=== PATIENT | female | born 1935 | race Caucasian/White ===

== ENCOUNTER → 2018-09-19 07:52 | Day surgery (SDC) | payer MEDICARE ==
[~2018-09-19 07:52] MED LIST: Heparin 2 UNITS/ML IVPREMIX* 3,000 UNIT/1,500 ML BAG IV ONE; Heparin(*) 1000 UNIT/ML 10 ML VIAL CATH LAB IV ONE; Iohexol 350 (CONTRAST) 200 ML MDV IV ONE; Lidocaine 1% INJ* 10 MG/ML 30 ML SDV ONE; Midazolam* 1 MG/ML 5 ML VIAL (5 MG) ONE; VERAPAMIL 2.5 MG/ML 2 ML VIAL ** 5 mg/2 ml ONE; fentaNYL* 50 MCG/ML 2 ML VIAL (100 MCG VIAL) ONE; nitroGLYCERIN DRIP* 25,000 MCG/250 ML BTL ONE
[2018-09-19 13:00] VITALS: BP 132/70
--- NOTE | 2018-09-20 15:00 | CATH ---
CC: Dr. Kane Roach; Dr. Dunbar at [facility]; Dr. Pozo * CATH REPORT: DATE OF PROCEDURE: 09/19/18 - [facility] CATH CUSTOMER EXPERIENCE ANALYST: Dr. Kane Roach and Dr. Dunbar at [facility]. PROCEDURES: 1. Right radial artery access. 2. Bilateral selective coronary cineangiography. HISTORY: An 83-year-old woman with symptomatic aortic valve stenosis with aortic valve area of 0.8, referred for cardiac cath pre TAVR. PROCEDURE ACCESS: Right radial artery sheath 6F slender. MEDICATIONS: 1. Subcu lidocaine. 2. IV Versed. 3. IV fentanyl. 4. Heparin 3000 units. 5. Verapamil 3 mg. 6. Nitroglycerin 300 mcg IA. DIAGNOSTIC CATHETER: 5F TIG4. HEMODYNAMICS: Initial AO: 82/51. Final AO: 99/55. ANGIOGRAPHY: Left main: It has a relatively superior takeoff, has no stenosis. It is large. LAD: The LAD is large, extends to the apex. The LAD supplies a large diagonal branch, the LAD has no stenosis. Circumflex: The circumflex is large, not dominant with a moderate first marginal, large second marginal which bifurcates, the circumflex ends with an atrial branch. The circumflex has no stenosis. RCA: The RCA is dominant, moderate in size, supplies the moderate PDA and several smaller posterolaterals. The RCA has proximal mild luminal irregularity , has no significant stenosis. Incidentally noted are an atrial and right ventricular pacing lead. CONCLUSION: 1. No significant obstructive coronary artery disease. 2. Successful right radial artery access. [id number]/[facility] #: [id number] [facility]
== END | disposition home or self-care (01) ==
LOC: CHICATH 07:52
PROVIDERS: ATTEND Internal Medicine Cardiovascular Disease
DX: I35.0 Nonrheumatic aortic (valve) stenosis (principal); R94.39 Abnormal result of other cardiovascular function study; I48.0 Paroxysmal atrial fibrillation; J44.9 Chronic obstructive pulmonary disease, unspecified; I12.9 Hypertensive chronic kidney disease with stage 1 through stage 4 chronic kidney disease, or unspecified chronic kidney disease; I50.9 Heart failure, unspecified; E78.5 Hyperlipidemia, unspecified; Z95.0 Presence of cardiac pacemaker
CPT/HCPCS: 93454; 99156; J1644; J2250; J3010